=== PATIENT | male | born 1965 | race Caucasian/White ===

== ENCOUNTER 2024-05-21 13:55 | Outpatient (CLI) | payer OTHER, SELFPAY ==
[2024-05-21 15:01] LABS: PSA Diagnostic* 5.12 ng/mL (0.10-4.00)
== END 2024-05-21 13:56 | disposition home or self-care (01) ==
LOC: LAB 14:00
PROVIDERS: Visit Provider Nurse Practitioner
DX: R97.20 Elevated prostate specific antigen [PSA] (principal)
CPT/HCPCS: 36415; 84153